=== PATIENT | female | born 1940 | race Two or more races ===

== ENCOUNTER 2017-01-19 14:12 | Outpatient (CLI) | payer MEDICARE, MEDICAID ==
[~2017-01-19 14:12] MED LIST: AMLODIPINE BESYL5 MG ORAL
[2017-01-19 14:20] VITALS: BP 123/77
--- NOTE | 2017-01-19 16:23 | GI Progress Note ---
Assessment/Plan Problems: (1) Weight loss ICD Codes: R63.4 - Abnormal weight loss SNOMED: 46641407, 244590789 (2) Appetite loss ICD Codes: R63.0 - Anorexia SNOMED: 78762633 (3) Colonoscopy planned SNOMED: 273697104 (4) Hx of colonic polyps ICD Codes: Z86.010 - Personal history of colonic polyps SNOMED: 778462041 (5) HTN (hypertension) ICD Codes: I10 - Essential (primary) hypertension SNOMED: 21539551 Status: unchanged Status Narrative Seen with Dr. Kirkpatrick. Assessment/Plan CT/MRI unremarkable noted per patient family weight loss of 20lbs under the course of one year EGD scheduled 02/26/17 - NPO day prior procedure acknowledged by patient. - labs to be drawn day of procedure >> TSH, Free T4, T3 Rx Amitiza 24 BID Subjective Subjective constipation upset stomach decrease appetite weight loss over the past 4-5 months CT/MRI by Dr. Hernandez unremarkable Objective Last 24 Hour Vital Signs Date Time Temp Pulse Resp B/P (MAP) Pulse Ox O2 Delivery O2 Flow Rate FiO2 01/19/17 14:20 97.7 60 16 123/77 General Appearance: no apparent distress, alert Cardiovascular: normal rate Respiratory/Chest: normal breath sounds, no respiratory distress Abdominal Exam: normal bowel sounds, non tender, soft Extremities: normal range of motion April Medel N.P. Jan 19, 2017 16:23
== END 2017-01-19 15:00 | disposition home or self-care (01) ==
LOC: PAN 14:12
DX: R63.4 Abnormal weight loss (principal); R63.0 Anorexia; Z86.010 Personal history of colon polyps; I10 Essential (primary) hypertension; K59.00 Constipation, unspecified
CPT/HCPCS: 99211

== ENCOUNTER 2017-01-23 07:06 | Day surgery (SDC) | payer MEDICARE, MEDICAID ==
[~2017-01-23] VITALS: Ht 162.6 cm; Wt 56.2 kg
[2017-01-23] VITALS (8 sets, daily range): BP systolic 117–143; BP diastolic 65–79
--- NOTE | 2017-01-23 06:46 | Anethesia Preoperative Eval ---
Anesthesia Pre-op PMH/ROS General Date of Evaluation: Jan 23, 2017 Time of Evaluation: 06:45 Anesthesiologist: isaac ASA Score: ASA 3 Mallampati Score Class I : Soft palate, uvula, fauces, pillars visible Class II: Soft palate, uvula, fauces visible Class III: Soft palate, base of uvula visible Class IV: Only hard plate visible Mallampati Classification: Class II Surgeon: duane Diagnosis: gerd Surgical Procedure: egd Allergies: Coded Allergies: No Known Allergies (Unverified , 08/08/15) Past Medical History Cardiovascular: Reports: HTN HEENT: Reports: cataract (L), cataract (R) Musculoskeletal/Integumentary: Reports: OA Anesthesia Pre-op Phys. Exam Physician Exam Labs Test 01/23/17 08:03 White Blood Count 5.8 K/UL (4.8-10.8) Red Blood Count 4.35 M/UL (4.20-5.40) Hemoglobin 13.7 G/DL (12.0-16.0) Hematocrit 41.6 % (37.0-47.0) Mean Corpuscular Volume 96 FL (80-99) Mean Corpuscular Hemoglobin 31.6 PG (27.0-31.0) Mean Corpuscular Hemoglobin Concent 33.0 G/DL (32.0-36.0) Red Cell Distribution Width 11.7 % (11.6-14.8) Platelet Count 224 K/UL (150-450) Mean Platelet Volume 7.3 FL (6.5-10.1) Neutrophils (%) (Auto) 56.3 % (45.0-75.0) Lymphocytes (%) (Auto) 34.0 % (20.0-45.0) Monocytes (%) (Auto) 7.7 % (1.0-10.0) Eosinophils (%) (Auto) 0.8 % (0.0-3.0) Basophils (%) (Auto) 1.1 % (0.0-2.0) Sodium Level 143 mEQ/L (135-145) Potassium Level 3.6 mEQ/L (3.4-4.9) Chloride Level 105 mEQ/L (98-107) Carbon Dioxide Level 29 mEQ/L (20-30) Anion Gap 9 (5-15) Blood Urea Nitrogen 10 mg/dL (7-23) Creatinine 0.6 mg/dL (0.5-0.9) Estimat Glomerular Filtration Rate mL/min (>60) Glucose Level 105 mg/dL (74-106) Calcium Level 9.1 mg/dL (8.6-10.2) Total Bilirubin 1.4 mg/dL (0.0-1.2) Aspartate Amino Transf (AST/SGOT) 9 U/L (5-40) Alanine Aminotransferase (ALT/SGPT) 7 U/L (3-33) Alkaline Phosphatase 66 U/L (35-104) Total Protein 6.3 g/dL (6.6-8.7) Albumin 4.2 g/dL (3.5-5.2) Globulin 2.1 g/dL Albumin/Globulin Ratio 2.0 (1.0-2.7) Thyroid Stimulating Hormone (TSH) 4.810 uIU/mL (0.300-4.500) Free Thyroxine 1.09 ng/dL (0.86-1.85) Total Triiodothyronine 0.95 ng/mL (0.80-2.00) Constitutional: NAD Neurologic: CN 2-12 intact Cardiovascular: RRR Respiratory: CTA Gastrointestinal: S/NT/ND Airway Exam Mallampati Score: Class II MO: full Neck: supple TMD: 2fb ROM: full Dentures: upper, lower Anesthesia Pre-op A/P Labs Labs Test 01/23/17 08:03 White Blood Count 5.8 K/UL (4.8-10.8) Red Blood Count 4.35 M/UL (4.20-5.40) Hemoglobin 13.7 G/DL (12.0-16.0) Hematocrit 41.6 % (37.0-47.0) Mean Corpuscular Volume 96 FL (80-99) Mean Corpuscular Hemoglobin 31.6 PG (27.0-31.0) Mean Corpuscular Hemoglobin Concent 33.0 G/DL (32.0-36.0) Red Cell Distribution Width 11.7 % (11.6-14.8) Platelet Count 224 K/UL (150-450) Mean Platelet Volume 7.3 FL (6.5-10.1) Neutrophils (%) (Auto) 56.3 % (45.0-75.0) Lymphocytes (%) (Auto) 34.0 % (20.0-45.0) Monocytes (%) (Auto) 7.7 % (1.0-10.0) Eosinophils (%) (Auto) 0.8 % (0.0-3.0) Basophils (%) (Auto) 1.1 % (0.0-2.0) Sodium Level 143 mEQ/L (135-145) Potassium Level 3.6 mEQ/L (3.4-4.9) Chloride Level 105 mEQ/L (98-107) Carbon Dioxide Level 29 mEQ/L (20-30) Anion Gap 9 (5-15) Blood Urea Nitrogen 10 mg/dL (7-23) Creatinine 0.6 mg/dL (0.5-0.9) Estimat Glomerular Filtration Rate mL/min (>60) Glucose Level 105 mg/dL (74-106) Calcium Level 9.1 mg/dL (8.6-10.2) Total Bilirubin 1.4 mg/dL (0.0-1.2) Aspartate Amino Transf (AST/SGOT) 9 U/L (5-40) Alanine Aminotransferase (ALT/SGPT) 7 U/L (3-33) Alkaline Phosphatase 66 U/L (35-104) Total Protein 6.3 g/dL (6.6-8.7) Albumin 4.2 g/dL (3.5-5.2) Globulin 2.1 g/dL Albumin/Globulin Ratio 2.0 (1.0-2.7) Thyroid Stimulating Hormone (TSH) 4.810 uIU/mL (0.300-4.500) Free Thyroxine 1.09 ng/dL (0.86-1.85) Total Triiodothyronine 0.95 ng/mL (0.80-2.00) Risk Assessment & Plan Assessment: asa3 Plan: mac Status Change Before Surgery: No Pre-Antibiotics Drug: CONOR Espitia Jan 23, 2017 06:46
[2017-01-23 08:22] LABS: BASOPHILS % (AUTO) 1.1 % (0.0-2.0); EOSINOPHILS % (AUTO) 0.8 % (0.0-3.0); MEAN CORPUSCULAR HEMOGLOBIN 31.6 PG (27.0-31.0); MEAN CORPUSCULAR VOLUME 96 FL (80-99); MEAN PLATELET VOLUME 7.3 FL (6.5-10.1); MONOCYTES % (AUTO) 7.7 % (1.0-10.0); NEUTROPHILS % (AUTO) 56.3 % (45.0-75.0); PLATELET COUNT 224 K/UL (150-450); RED BLOOD COUNT 4.35 M/UL (4.20-5.40); RED CELL DISTRIBUTION WIDTH 11.7 % (11.6-14.8); WHITE BLOOD COUNT 5.8 K/UL (4.8-10.8)
[2017-01-23 08:41] LABS: ALANINE AMINOTRANSFERASE 7 U/L (3-33); ANION GAP 9 (5-15); ASPARTATE AMINO TRANSFERASE 9 U/L (5-40); CALCIUM 9.1 mg/dL (8.6-10.2); CARBON DIOXIDE 29 mEQ/L (20-30); CHLORIDE 105 mEQ/L (98-107); CREATININE 0.6 mg/dL (0.5-0.9); HEMOLYSIS 2; POTASSIUM 3.6 mEQ/L (3.4-4.9); SODIUM 143 mEQ/L (135-145); TOTAL PROTEIN 6.3 g/dL (6.6-8.7)
--- NOTE | 2017-01-23 08:55 | Pre-Procedure Note/Attestation ---
Pre-Procedure Note/Attestation Complete Prior to Procedure Planned Procedure: not applicable Procedure Narrative: EGD Indications for Procedure Pre-Operative Diagnosis: GERD Attestation I attest that I discussed the nature of the procedure; its benefits; risks and complications; and alternatives (and the risks and benefits of such alternatives ), prior to the procedure, with the patient (or the patient's legal dental detail representative). I attest that, if there was a reasonable possibility of needing a blood transfusion, the patient (or the patient's legal dental detail representative) was given the [facility] standardized written summary, pursuant to the [place] Blood Safety Act ([place] Health and Safety Code # 1645, as amended). I attest that I re-evaluated the patient just prior to the surgery and that there has been no change in the patient's H&P, except as documented below: KAR KEENE Jan 23, 2017 08:55
--- NOTE | 2017-01-23 08:56 | Short Stay Surgery H&P ---
History of Present Illness History of Present Illness Chief Complaint GERD HPI Thierry Rivera is a 76 year old female who was admitted on for GERD Patient History Allergies: Coded Allergies: No Known Allergies (Unverified , 08/08/15) PAST MEDICAL HISTORY: (1) HTN (hypertension) (2) Hx of colonic polyps (3) Weight loss (4) Arthritis Past Surgeries: Social History: Medication History Scheduled Amlodipine Besylate* (Amlodipine Besylate*), 5 MG ORAL DAILY, (Reported) Review of Systems Cardiovascular: Reports: no symptoms Skeletal: Reports: no symptoms Gastrointestinal: Reports: gastro esophageal reflux disease Genitourinary: Reports: no symptoms Neurologic: Reports: no symptoms Endocrine: Reports: no symptoms Hematologic: Reports: no symptoms Physical Exam Vital Signs Last Vital Signs Date Time Temp Pulse Resp B/P (MAP) Pulse Ox O2 Delivery O2 Flow Rate FiO2 01/23/17 07:36 97.5 70 16 140/79 98 Room Air Labs Laboratory Tests Test 01/23/17 08:03 White Blood Count 5.8 K/UL (4.8-10.8) Red Blood Count 4.35 M/UL (4.20-5.40) Hemoglobin 13.7 G/DL (12.0-16.0) Hematocrit 41.6 % (37.0-47.0) Mean Corpuscular Volume 96 FL (80-99) Mean Corpuscular Hemoglobin 31.6 PG (27.0-31.0) H Mean Corpuscular Hemoglobin Concent 33.0 G/DL (32.0-36.0) Red Cell Distribution Width 11.7 % (11.6-14.8) Platelet Count 224 K/UL (150-450) Mean Platelet Volume 7.3 FL (6.5-10.1) Neutrophils (%) (Auto) 56.3 % (45.0-75.0) Lymphocytes (%) (Auto) 34.0 % (20.0-45.0) Monocytes (%) (Auto) 7.7 % (1.0-10.0) Eosinophils (%) (Auto) 0.8 % (0.0-3.0) Basophils (%) (Auto) 1.1 % (0.0-2.0) Sodium Level 143 mEQ/L (135-145) Potassium Level 3.6 mEQ/L (3.4-4.9) Chloride Level 105 mEQ/L (98-107) Carbon Dioxide Level 29 mEQ/L (20-30) Anion Gap 9 (5-15) Blood Urea Nitrogen 10 mg/dL (7-23) Creatinine 0.6 mg/dL (0.5-0.9) Estimat Glomerular Filtration Rate mL/min (>60) Glucose Level 105 mg/dL (74-106) Calcium Level 9.1 mg/dL (8.6-10.2) Total Bilirubin 1.4 mg/dL (0.0-1.2) H Direct Bilirubin Pending Aspartate Amino Transf (AST/SGOT) 9 U/L (5-40) Alanine Aminotransferase (ALT/SGPT) 7 U/L (3-33) Alkaline Phosphatase 66 U/L (35-104) Total Protein 6.3 g/dL (6.6-8.7) L Albumin 4.2 g/dL (3.5-5.2) Globulin 2.1 g/dL Albumin/Globulin Ratio 2.0 (1.0-2.7) Thyroid Stimulating Hormone (TSH) 4.810 uIU/mL (0.300-4.500) Free Thyroxine 1.09 ng/dL (0.86-1.85) Total Triiodothyronine 0.95 ng/mL (0.80-2.00) Skin: normal HENT: normal Heart: normal Lungs: normal Abdomen: normal Extremities: normal Plan Plan of Care EGD Final Diagnosis: Attestation Are the patient's medical conditions optimized for surgery? Attestation Response: yes KAR KEENE Jan 23, 2017 08:56
[2017-01-23] MEDS ORDERED: Lidocaine 1% MPF 10mg/ml 5ml ONE (09:00)
[2017-01-23] MEDS ORDERED: Propofol 200mg/20ml IV ONE (09:00)
[2017-01-23 09:21] LABS: BILIRUBIN,DIRECT 0.2 mg/dL (0.1-0.3)
[2017-01-23] MEDS ORDERED: fentaNYL 100 mcg/2 mL IV PRN (09:30)
[2017-01-23] MEDS ORDERED: Midazolam 2mg/2ml Inj IVP PRN (09:30)
[2017-01-23] MEDS ORDERED: DiphenhydrAMINE 50mg/ml Inj IVP PRN (09:30)
[2017-01-23] MEDS ORDERED: Atropine Inj 1mg/10ml Syr IV PRN (09:30)
--- NOTE | 2017-01-23 09:33 | Immediate Post-Op Evaluation ---
Immediate Post-Op Evalulation Immediate Post-Op Evalulation Procedure: egd Date of Evaluation: Jan 23, 2017 Time of Evaluation: 09:32 IV Fluids: 350ml 0.9ns Blood Products: none Estimated Blood Loss: negligible Blood Pressure Systolic: 117 Blood Pressure Diastolic: 65 Pulse Rate: 57 Respiratory Rate: 18 O2 Sat by Pulse Oximetry: 100 Temperature (Fahrenheit): 97.3 Pain Score (1-10): 0 Nausea: No Vomiting: No Complications none Patient Status: awake, reacts, patent Hydration Status: adequate Drug: CONOR Espitia Jan 23, 2017 09:33
--- NOTE | 2017-01-23 09:34 | 48 Hour Post Anesthesia Eval ---
Post Anesthesia Evaluation Procedure: egd Date of Evaluation: Jan 23, 2017 Time of Evaluation: 09:34 Blood Pressure Systolic: 120 0: 76 Pulse Rate: 54 Respiratory Rate: 18 Temperature (Fahrenheit): 97.3 O2 Sat by Pulse Oximetry: 100 Airway: patent Nausea: No Vomiting: No Pain Intensity: 0 Hydration Status: adequate Cardiopulmonary Status: stable Mental Status/LOC: patient returned to baseline Post-Anesthesia Complications: none Follow-up care needed: N/A CONOR KEENE Jan 23, 2017 09:34
--- NOTE | 2017-01-23 10:15 | Endoscopy Procedure Note ---
Endoscopy Procedure Note Indication for Procedure: abd pain, wt loss Procedures Performed: EGD Operative Findings/Diagnosis: gastritis Specimen: yes Pt Tolerated Procedure Well: Yes Estimated Blood Loss: none Anesthesiologist: isaac Anesthesia: MAC Implant(s) used?: No 50 yrs or older w/o bx or poly: Not Applicable 10yrs. F/U not recommended: Not Applicable KAR KEENE Jan 23, 2017 10:15
--- NOTE | 2017-01-23 21:15 | Procedure Note ---
DATE OF PROCEDURE: 01/23/2017 SURGEON: Vasile Kirkpatrick M.D. PROCEDURE: Upper endoscopy with biopsy. ANESTHESIOLOGIST: Cynthia Fuller M.D. INSTRUMENT: Olympus adult flexible upper endoscope. Indication: Gastroesophageal reflux disease, dysphagia, and weight loss. Reason for Procedure: The procedure, risks, benefits, and possible consequences, including hemorrhage, aspiration, perforation and infection, and alternative treatments, were explained to the patient/legal guardian by Dr. Vasile Kirkpatrick and the patient/legal guardian understood and accepted these risks. Description of Procedure: After informed consent was obtained and the patient was adequately sedated, Olympus upper endoscope was advanced from mouth into the second portion of the duodenum and retroflexion was performed in stomach. The patient had diffuse atrophic gastritis. Random biopsy from antrum and body was obtained to rule out H. pylori infection. Otherwise, the rest of the upper endoscopic examination was within normal limits. The patient tolerated the procedure well without any complication. Summary Findings: Atrophic gastritis, otherwise normal upper endoscopic examination. RECOMMENDATIONS: 1. Follow up biopsies and treat accordingly. 2. We are going to obtain the imaging studies from Dr. Nancy Hernandez's office to see if there is anything to explain her symptoms, they probably might consider doing endoscopic ultrasound for evaluation of pancreas. I want to thank, Dr. Nancy Hernandez, for this kind referral. Vasile Kirkpatrick M.D. DR: JACKIE JOB#: [id number] CC: Nancy Hernandez M.D.; Fax#: [phone]
--- NOTE | 2017-02-15 17:53 | Cardiology Report ---
APPROVED REPORT EKG Measurement Heart [id number] Normal sinus rhythm Left axis deviation Nonspecific T wave abnormality Abnormal ECG
== END 2017-01-23 10:20 | disposition home or self-care (01) ==
LOC: GAS 07:06
DX: K29.40 Chronic atrophic gastritis without bleeding (principal); K21.9 Gastro-esophageal reflux disease without esophagitis; R63.4 Abnormal weight loss; I10 Essential (primary) hypertension; M19.90 Unspecified osteoarthritis, unspecified site
CPT/HCPCS: 36415; 43239; 80053; 82248; 84439; 84443; 84480; 85025; 93005; J2704; 94003; 94150

== ENCOUNTER 2017-02-05 13:19 | Outpatient (CLI) | payer MEDICARE, MEDICAID ==
[2017-02-05 13:30] VITALS: BP 128/66
--- NOTE | 2017-02-05 15:12 | GI Progress Note ---
Assessment/Plan Problems: (1) H. pylori infection ICD Codes: A04.8 - Other specified bacterial intestinal infections SNOMED: 730523169 (2) HTN (hypertension) ICD Codes: I10 - Essential (primary) hypertension SNOMED: 81191266 (3) Weight loss ICD Codes: R63.4 - Abnormal weight loss SNOMED: 59008558, 108539434 (4) Appetite loss ICD Codes: R63.0 - Anorexia SNOMED: 34197352 Status: stable Status Narrative Discussed with Dr. Kirkpatrick. Assessment/Plan Summary Findings reviewed with patient: Atrophic gastritis, otherwise normal upper endoscopic examination. RECOMMENDATIONS: Follow up biopsies and treat accordingly. >> H. Pylori Positive, treatment given. monitor weight push PO, recommend ensure RTC x 3 months The patient was seen and examined at bedside and all new and available data was reviewed in the patients chart. I agree with the above findings, impression and plan. (Patient seen earlier today. Signature stamp does not reflect patient encounter time.). - Nasim Kirkpatrick MD. Subjective Subjective abdominal pain resolved Objective T 98.2 BP 128/66 P 68 95 RA 121 lbs, same since last admission. General Appearance: no apparent distress, alert Cardiovascular: normal rate Respiratory/Chest: normal breath sounds, no respiratory distress Abdominal Exam: normal bowel sounds, non tender, soft Extremities: normal range of motion April Medel N.P. Feb 05, 2017 15:12 KAR KIRKPATRICK Feb 06, 2017 09:22
== END 2017-02-05 13:55 | disposition home or self-care (01) ==
LOC: PAN 13:19
DX: A04.8 Other specified bacterial intestinal infections (principal); I10 Essential (primary) hypertension; R63.4 Abnormal weight loss; R63.0 Anorexia; B96.81 Helicobacter pylori [H. pylori] as the cause of diseases classified elsewhere; K29.70 Gastritis, unspecified, without bleeding
CPT/HCPCS: 99211

== ENCOUNTER 2017-06-29 13:42 | Outpatient (CLI) | payer MEDICARE, MEDICAID ==
--- NOTE | 2017-06-29 14:26 | GI Progress Note ---
Assessment/Plan Problems: (1) H. pylori infection ICD Codes: A04.8 - Other specified bacterial intestinal infections SNOMED: 343638246 Status: stable Status Narrative Seen with Dr. Kirkpatrick. Assessment/Plan EGD 12/2016 s/p H. Pylori tx here for BT today RTC prn, will follow up with patients with results colonoscopy 03/2016, repeat 2020 Subjective Gastrointestinal/Abdominal: Reports: no symptoms Objective T 98.0 BP 126/72 HR 66 97 RA General Appearance: WD/WN, no apparent distress, alert Cardiovascular: normal rate Respiratory/Chest: normal breath sounds, no respiratory distress Abdominal Exam: normal bowel sounds, non tender, soft Extremities: normal range of motion, non-tender April Medel N.P. Jun 29, 2017 14:26
[2017-06-29 15:05] VITALS: BP 126/72
== END 2017-06-29 14:12 | disposition home or self-care (01) ==
LOC: PAN 13:42
DX: A04.8 Other specified bacterial intestinal infections (principal)
CPT/HCPCS: 83013; G0463; 99212

== ENCOUNTER 2019-10-12 13:15 | Outpatient (CLI) | payer MEDICARE, MEDICAID ==
--- NOTE | 2019-10-12 18:30 | Progress Note ---
DATE: 10/12/2019 SUBJECTIVE: Here for followup. This is a very pleasant 79-year-old female who is known to me from prior visits. Last one was . Last endoscopy December 2016. Last colonoscopy March 2016. She had only 1 polyp. She is here just for checkup to see when is the next time she needs to have endoscopy and colonoscopy. Denies any nausea, vomiting, or abdominal pain. PHYSICAL EXAMINATION: VITAL SIGNS: Stable. HEENT: Normocephalic, atraumatic. Sclerae are anicteric. NECK: Supple. No evidence of obvious lymphadenopathy. CARDIOVASCULAR: Regular rate and rhythm. Plus S1, S2. LUNGS: Clear to auscultation bilaterally. ABDOMEN: Positive bowel sounds. Soft and nontender. No rebound. No guarding. No peritoneal sign. EXTREMITIES: No cyanosis, no clubbing, no edema. PROBLEM LIST: 1. Hypertension. 2. Arthritis. 3. Colon polyps. 4. H. pylori infection, status post treatment. RECOMMENDATION: At this time, patient is relatively asymptomatic. No nausea. No vomiting. No GI symptoms. We reviewed the endoscopy and colonoscopy report. She was told to come back next year to be scheduled for colonoscopy given her last colonoscopy was in 2016. Vasile Kirkpatrick M.D. DR: JADE JOB#: [id number] CC:
== END 2019-10-12 15:15 | disposition home or self-care (01) ==
LOC: PAN 13:15
DX: K63.5 Polyp of colon (principal); I10 Essential (primary) hypertension; M19.90 Unspecified osteoarthritis, unspecified site
CPT/HCPCS: 99212